=== PATIENT | male | born 1960 | race American Indian/Alaskan Native ===

== ENCOUNTER 2017-02-22 11:50 | Outpatient (CLI) | payer OTHER ==
--- NOTE | 2017-02-22 14:48 | XRay Report ---
LUMBOSACRAL SPINE, 3 VIEWS: History: Back pain Findings: The vertebral bodies, disk spaces and posterior elements are intact. No compression deformity or malalignment. The SI joints are symmetric and unremarkable. Mild to moderate degenerative disc disease and facet arthropathy are identified at all levels. L5-S1 appears to be the most affected level. Impression: Lumbar spondylosis. No acute injury is identified.
== END 2017-02-22 11:51 | disposition home or self-care (01) ==
LOC: XRAY 11:50
PROVIDERS: ATTEND Internal Medicine
DX: M51.36 Other intervertebral disc degeneration, lumbar region (principal); M47.896 Other spondylosis, lumbar region; M12.88 Other specific arthropathies, not elsewhere classified, other specified site; R52 Pain, unspecified; I10 Essential (primary) hypertension; F17.200 Nicotine dependence, unspecified, uncomplicated
CPT/HCPCS: 72100

== ENCOUNTER 2018-07-28 20:12 | Emergency (ER) | payer SELFPAY ==
[2018-07-28 20:44] VITALS: BP 137/97
--- NOTE | 2018-07-28 22:30 | Emergency Department Report ---
ED General Adult HPI - General Chief complaint: Headache Stated complaint: ELEV B/P Time Seen by Provider: 07/28/18 22:12 Source: patient Mode of arrival: Ambulatory Limitations: No Limitations - History of Present Illness Initial comments: 57-year-old -[place] male to emergency department complaining of a fluctuant blood pressure due to being out of his medications for about last 6 months. States he was on Diovan HCT Z and is seeking a refill of medications reports no chest pain, palpitations, nausea, vomiting, fever, chills, sweats, tinnitus, presyncope. No flank pain. Radiation: non-radiation Severity scale (0 -10): 0 Consistency: constant Improves with: none Worsens with: none Associated Symptoms: denies: cough, diaphoresis, fever/chills, loss of appetite, malaise, nausea/vomiting, rash, syncope, weakness Treatments Prior to Arrival: none - Related Data Previous Rx's Medication Instructions Recorded Last Taken Type Famotidine [Pepcid] 20 mg PO BID #60 tablet 05/15/16 Unknown Rx Valsartan/Hydrochlorothiazide 1 each PO DAILY #30 tablet 07/28/18 Unknown Rx [Diovan Hct 160-25 mg Tablet] Allergies Allergy/AdvReac Type Severity Reaction Status Date / Time No Known Allergies Allergy Unverified 05/11/16 15:56 ED Review of Systems ROS: Stated complaint: ELEV B/P Other details as noted in HPI Constitutional: denies: chills, fever Eyes: denies: eye pain, eye discharge, vision change ENT: denies: ear pain, throat pain Respiratory: denies: cough, shortness of breath, wheezing Cardiovascular: denies: chest pain, palpitations Endocrine: no symptoms reported Gastrointestinal: denies: abdominal pain, nausea, diarrhea Genitourinary: denies: urgency, dysuria Musculoskeletal: denies: back pain, joint swelling, arthralgia Skin: denies: rash, lesions Neurological: denies: headache, weakness, paresthesias Psychiatric: denies: anxiety, depression Hematological/Lymphatic: denies: easy bleeding, easy bruising ED Past Medical Hx - Past Medical History Previous Medical History?: Yes Hx Hypertension: Yes (Not on medication) - Surgical History Past Surgical History?: No - Social History Smoking Status: Never Smoker Substance Use Type: None - Medications Home Medications: Home Medications Medication Instructions Recorded Confirmed Last Taken Type Famotidine [Pepcid] 20 mg PO BID #60 tablet 05/15/16 Unknown Rx Valsartan/Hydrochlorothiazide 1 each PO DAILY #30 tablet 07/28/18 Unknown Rx [Diovan Hct 160-25 mg Tablet] ED Physical Exam - General Limitations: No Limitations General appearance: alert, in no apparent distress - Head Head exam: Present: atraumatic, normocephalic - Eye Eye exam: Present: normal appearance Pupils: Present: normal accommodation - ENT ENT exam: Present: normal exam, mucous membranes moist - Neck Neck exam: Present: normal inspection - Respiratory Respiratory exam: Present: normal lung sounds bilaterally. Absent: respiratory distress - Cardiovascular Cardiovascular Exam: Present: regular rate, normal rhythm. Absent: systolic murmur, diastolic murmur, rubs, gallop - GI/Abdominal GI/Abdominal exam: Present: soft, normal bowel sounds - Rectal Rectal exam: Present: deferred - Extremities Exam Extremities exam: Present: normal inspection - Back Exam Back exam: Present: normal inspection - Neurological Exam Neurological exam: Present: alert, oriented X3 - Psychiatric Psychiatric exam: Present: normal affect, normal mood - Skin Skin exam: Present: warm, dry, intact, normal color. Absent: rash ED Course Vital Signs 07/28/18 20:39 Temperature 98.4 F Pulse Rate 78 Respiratory 16 Rate Blood Pressure 137/97 O2 Sat by Pulse 97 Oximetry Critical care attestation.: If time is entered above; I have spent that time in minutes in the direct care of this critically ill patient, excluding procedure time. ED Disposition Clinical Impression: Hypertension, H/O medication noncompliance Disposition: TO HOME OR SELFCARE Is pt being admited?: No Does the pt Need Aspirin: No Condition: Stable Instructions: Hypertension (ED) Prescriptions: Valsartan/Hydrochlorothiazide [Diovan Hct 160-25 mg Tablet] 1 each PO DAILY #30 tablet Referrals: AMMY TURNER DO [Primary Care Provider] - 3-5 Days [facility] [Provider Group] - 3-5 Days
== END 2018-07-28 22:40 | disposition home or self-care (01) ==
LOC: ED 20:12
DX: I10 Essential (primary) hypertension (principal); Z91.14 Patient's other noncompliance with medication regimen
CPT/HCPCS: 99282

== ENCOUNTER 2018-09-30 19:40 | Emergency (ER) | payer OTHER ==
--- NOTE | 2018-09-30 19:55 | Emergency Department Report ---
Chief Complaint: Abdominal Pain Stated Complaint: ABDOMINAL PAIN, MUSCLE SPASMS Time Seen by Provider: 09/30/18 19:54 - HPI History of Present Illness: This is a 57 y.o. male that presents with abdominal pain for 2 days. He also reports muscle spasms in calf muscles for several years that is increasing. cc: nausea and constipation - Exam Vital Signs: Vital Signs 09/30/18 19:55 Temperature 98.2 F Pulse Rate 88 Respiratory 16 Rate Blood Pressure 141/77 O2 Sat by Pulse 96 Oximetry MSE screening note: Focused history and physical exam performed. Due to findings the following was ordered: labs and CT of abdomen ED Disposition for MSE Condition: Stable
[2018-09-30 19:57] VITALS: BP 141/77
[2018-09-30 20:16] LABS: Hematocrit 41.8 % (35.5-45.6); Hemoglobin 13.9 gm/dl (11.8-15.2); Mean Corpuscular HGB Conc 33 % (32-34); Mean Corpuscular Volume 78 fl (84-94); Platelet Count 261 K/mm3 (140-440); Red Blood Count 5.35 M/mm3 (3.65-5.03); Red Cell Distribution Width 15.9 % (13.2-15.2)
[2018-09-30 20:30] LABS: Albumin 4.3 g/dL (3.9-5); BUN/Creatinine Ratio 9; Blood Urea Nitrogen 11 mg/dL (9-20); Calcium 9.1 mg/dL (8.4-10.2); Hemolysis Index 12
[2018-09-30 20:44] LABS: Alanine Aminotransferase < 5 units/L (7-56)
--- NOTE | 2018-09-30 21:04 | Cat Scan Report ---
PROCEDURE: CT abdomen and pelvis without contrast. TECHNIQUE: Computerized axial tomography of the abdomen and pelvis was performed without intravenous contrast. This study is performed without intravascular contrast material and its sensitivity for ab dominal and pelvic pathology, including neoplasms, inflammation, abscess, free fluid, thrombosis, art erial dissection and infarction, is reduced compared with a contrast enhanced study. CT DOSE LENGTH PRODUCT: 1180.42 mGycm HISTORY: Upper abdominal pain. COMPARISONS: None. FINDINGS: The lung bases are clear. There are no pleural effusions. The heart size is normal. There are 2 focal low attenuation masses in the liver consistent with cysts. The gallbladder is present. The pancreas and spleen are grossly normal. The adrenal glands are not enlarged. Both kidneys appear normal in siz e and configuration. The abdominal aorta has a normal caliber. There is no retroperitoneal adenopathy . The unopacified gastrointestinal tract is unremarkable. A normal appendix is visible. The bladder, seminal vesicles and prostate are unremarkable. The regional skeleton appears intact. IMPRESSION: Probable small liver cysts. No evidence of acute disease in the abdomen or pelvis. This document is electronically signed by Ajay Mello MD., September 30 2018 09:02:56 PM ET
[2018-09-30 21:44] LABS: Basophils % (Manual) 0 % (0.0-1.8); RBC Morphology Normal; Total Cells Counted 100
--- NOTE | 2018-09-30 22:28 | Emergency Department Report ---
ED Abdominal Pain HPI - General Chief Complaint: Abdominal Pain Stated Complaint: ABDOMINAL PAIN, MUSCLE SPASMS Time Seen by Provider: 09/30/18 19:54 Source: patient Mode of arrival: Ambulatory Limitations: No Limitations - History of Present Illness Initial Comments: Patient is a 57-year-old male presents emergency room with complaints of left lower quadrant abdominal pain 2 days. Patient states the pain is worsened. Patient states the pain is a cramping sensation. Patient states the pain is a 8 out of 10. Patient denies fever and chills. Patient denies nausea vomiting. Patient denies dysuria. Patient denies constipation. Patient denies diarrhea. Patient also complains of muscle spasms 16 years. Patient states that they have been going on for the past 16 years and he has not talked to his doctor about them. MD Complaint: abdominal pain Location: LLQ Severity scale (0 -10): 8 - Related Data Previous Rx's Medication Instructions Recorded Last Taken Type Famotidine [Pepcid] 20 mg PO BID #60 tablet 05/15/16 Unknown Rx Valsartan/Hydrochlorothiazide 1 each PO DAILY #30 tablet 07/28/18 Unknown Rx [Diovan Hct 160-25 mg Tablet] Docusate Sodium [Colace] 100 mg PO BID #20 capsule 09/30/18 Unknown Rx Allergies Allergy/AdvReac Type Severity Reaction Status Date / Time No Known Allergies Allergy Unverified 05/11/16 15:56 ED Review of Systems ROS: Stated complaint: ABDOMINAL PAIN, MUSCLE SPASMS Other details as noted in HPI Constitutional: denies: chills, diaphoresis, fever, malaise, weakness Eyes: denies: eye pain, eye discharge, vision change ENT: denies: ear pain, throat pain Respiratory: denies: cough, shortness of breath, wheezing Cardiovascular: denies: chest pain, palpitations Endocrine: no symptoms reported Gastrointestinal: abdominal pain. denies: nausea, vomiting, diarrhea Genitourinary: denies: urgency, dysuria Musculoskeletal: myalgia. denies: back pain, joint swelling, arthralgia Skin: denies: rash, lesions Neurological: denies: headache, weakness, paresthesias Psychiatric: denies: anxiety, depression Hematological/Lymphatic: denies: easy bleeding, easy bruising ED Past Medical Hx - Past Medical History Previous Medical History?: Yes Hx Hypertension: Yes (Not on medication) - Surgical History Past Surgical History?: No - Family History Family history: no significant - Social History Smoking Status: Never Smoker Substance Use Type: None - Medications Home Medications: Home Medications Medication Instructions Recorded Confirmed Last Taken Type Famotidine [Pepcid] 20 mg PO BID #60 tablet 05/15/16 Unknown Rx Valsartan/Hydrochlorothiazide 1 each PO DAILY #30 tablet 07/28/18 Unknown Rx [Diovan Hct 160-25 mg Tablet] Docusate Sodium [Colace] 100 mg PO BID #20 capsule 09/30/18 Unknown Rx ED Physical Exam - General Limitations: No Limitations General appearance: alert, in no apparent distress - Head Head exam: Present: atraumatic, normocephalic - Eye Eye exam: Present: normal appearance - ENT ENT exam: Present: mucous membranes moist - Neck Neck exam: Present: normal inspection - Respiratory Respiratory exam: Present: normal lung sounds bilaterally. Absent: respiratory distress - Cardiovascular Cardiovascular Exam: Present: regular rate, normal rhythm. Absent: systolic murmur, diastolic murmur, rubs, gallop - GI/Abdominal GI/Abdominal exam: Present: soft, tenderness (left lower quadrant tenderness), normal bowel sounds - Rectal Rectal exam: Present: deferred - Extremities Exam Extremities exam: Present: normal inspection - Back Exam Back exam: Present: normal inspection - Neurological Exam Neurological exam: Present: alert, oriented X3 - Psychiatric Psychiatric exam: Present: normal affect, normal mood - Skin Skin exam: Present: warm, dry, intact, normal color. Absent: rash ED Course Vital Signs 09/30/18 19:55 Temperature 98.2 F Pulse Rate 88 Respiratory 16 Rate Blood Pressure 141/77 O2 Sat by Pulse 96 Oximetry - Reevaluation(s) Reevaluation #1: Past costal results to patient. Patient stable for discharge. Patient given discharge instruction. Patient voiced understanding of discharge instructions 09/30/18 23:28 ED Medical Decision Making - Lab Data Result diagrams: 09/30/18 19:59 09/30/18 19:59 - Radiology Data Radiology results: report reviewed PROCEDURE: CT abdomen and pelvis without contrast. TECHNIQUE: Computerized axial tomography of the abdomen and pelvis was performed without intravenous contrast. This study is performed without intravascular contrast material and its sensitivity for abdominal and pelvic pathology, including neoplasms, inflammation, abscess, free fluid, thrombosis, arterial dissection and infarction, is reduced compared with a contrast enhanced study. CT DOSE LENGTH PRODUCT: 1180.42 mGycm HISTORY: Upper abdominal pain. COMPARISONS: None. FINDINGS: The lung bases are clear. There are no pleural effusions. The heart size is normal. There are 2 focal low attenuation masses in the liver consistent with cysts. The gallbladder is present. The pancreas and spleen are grossly normal. The adrenal glands are not enlarged. Both kidneys appear normal in size and configuration. The abdominal aorta has a normal caliber. There is no retroperitoneal adenopathy. The unopacified gastrointestinal tract is unremarkable. A normal appendix is visible. The bladder, seminal vesicles and prostate are unremarkable. The regional skeleton appears intact. IMPRESSION: Probable small liver cysts. No evidence of acute disease in the abdomen or pelvis. - Medical Decision Making Patient is a 57-year-old male presents emergency room with complaints of abdominal pain and myalgias and muscle graft. Also cramps are chronic. Patient instructed to follow up with primary care for his muscle cramps. Patient's abdominal pain worked up. CT is negative. Labs unremarkable. Urine is negative. Patient's CK is negative. Patient instructed to eat a high-fiber diet. Patient increase water. Patient to rest patient given discharge instructions. Patient stable for discharge. - Differential Diagnosis constipation. Abdominal pain. Diverticulitis. UTI. Critical care attestation.: If time is entered above; I have spent that time in minutes in the direct care of this critically ill patient, excluding procedure time. ED Disposition Clinical Impression: Myalgia Abdominal pain Qualifiers: Abdominal location: left lower quadrant Qualified Code(s): R10.32 - Left lower quadrant pain Constipation Qualifiers: Constipation type: unspecified constipation type Qualified Code(s): K59.00 - Constipation, unspecified Disposition: DC-01 TO HOME OR SELFCARE Is pt being admited?: No Does the pt Need Aspirin: No Condition: Stable Instructions: Constipation (ED), High Fiber Diet (ED), Acute Abdominal Pain (ED), Abdominal Pain (ED), Muscle Cramp (ED) Additional Instructions: Patient To follow up with primary care in 2-3 days. Patient to return to ER if condition worsens. Patient to increase water. Patient to eat a high-fiber diet patient to take Tylenol or ibuprofen when necessary for pain. Prescriptions: Docusate Sodium [Colace] 100 mg PO BID #20 capsule Referrals: CARBUCCIA,SASCHA, MD [Primary Care Provider] - 2-3 Days Forms: Work/School Release Form(ED) Time of Disposition: 23:31
[2018-09-30 23:10] LABS: Bilirubin,Urine NEG (Negative); Blood,Urine NEG (Negative); Color,Urine Yellow (Yellow); Mucus,Urine 3+ /HPF; Protein,Urine <15 mg/dL mg/dL (Negative)
== END 2018-09-30 23:44 | disposition home or self-care (01) ==
LOC: ED 19:40
DX: K59.00 Constipation, unspecified (principal); M79.18 Myalgia, other site; I10 Essential (primary) hypertension
CPT/HCPCS: 36415; 74176; 80053; 81001; 82550; 83690; 85007; 85025